=== PATIENT | female | born 1970 | race Caucasian/White ===

== ENCOUNTER 2016-04-27 07:50 | Emergency (ER) | payer OTHER ==
[~2016-04-27] VITALS: Ht 157.5 cm; Wt 93.8 kg
[~2016-04-27 07:50] MED LIST: CEFD300C2 PO; DIAZ5TAB PO; DIAZ5TAB4 PO; DILT120C PO; DILT60CA PO; DIPH25CA61 PO; ESCI10TA10 PO; ESTR0.3T PO; HYDR-3307 PO; HYDR2TAB13 PO; IBUP800T PO; LAMO50TA; LEVO750T26 PO; METF500T4 PO; METO-93 PO; METO100T; METO10TA2 PO; METO50TA82 PO; MULT-672 PO; MULT1CAP19 PO; OMEP-110; OMEP-110 PO; ONDA4TAB7; ONDA4TAB7 PO; OXYC-302 PO; OXYC10TA6 PO; OXYC5TAB3 PO; Ondansetron PO; PANT40TA3 PO; POLY17PO5 PO; RISPERDONE; TRAM50TA2 PO; ZOLP-413
[2016-04-27] MEDS ORDERED: FAMOTIDINE 20 MG/2 ML IVP ONE (08:30)
[2016-04-27] MEDS ORDERED: SODIUM CHLORIDE 0.9% 1,000ML IVBOLUS ONE (08:30)
[2016-04-27] MEDS ORDERED: ONDANSETRON 2MG/ML, 2ML IVPush ONE (08:30)
[2016-04-27] MEDS ORDERED: ICN FENTANYL 0.5MCG/ML IV IVPush ONE (08:30)
[2016-04-27] MEDS ORDERED: SODIUM CHLORIDE FLUSH 10ML SYR IVF ONE (08:30)
[2016-04-27] MEDS ORDERED: FENTANYL PF 100 MCG/2ML IVPush PRN (08:30)
[2016-04-27 08:40] LABS: HEMOGLOBIN 13.5 g/dL (11.7-16.4)
[2016-04-27 08:48] LABS: ASPARTATE AMINO TRANSFERASE 40 U/L (15-37); BLOOD UREA NITROGEN 13 mg/dL (7-18)
[2016-04-27] MEDS ORDERED: ONDANSETRON 2MG/ML, 2ML ONE (09:09)
[2016-04-27] MEDS ORDERED: HYDROmorphone 1 MG/ML, 1ML ONE ×3 (09:09→11:07)
[2016-04-27] MEDS ORDERED: FAMOTIDINE 20 MG/2 ML ONE (09:09)
[2016-04-27] MEDS: HYDROmorphone 1 MG/ML, 1ML IVPush PRN ×2 (09:12→10:42)
[2016-04-27] MEDS ORDERED: HYDROmorphone 1 MG/ML, 1ML IVPush PRN (11:30)
[2016-04-27 12:25] VITALS: BP 130/98
== END 2016-04-27 12:27 | disposition home or self-care (01) ==
LOC: ED 08:45
DX: R10.33 Periumbilical pain (principal); G89.29 Other chronic pain; E11.9 Type 2 diabetes mellitus without complications; I10 Essential (primary) hypertension; Z87.01 Personal history of pneumonia (recurrent)
CPT/HCPCS: 36415; 74020; 80053; 81003; 83690; 85025; 93005; 96361; 96374; 96375; 96376; 99285; J1170; J2405; J7030; S0028

== ENCOUNTER 2016-06-17 07:32 | Emergency (ER) | payer OTHER ==
[~2016-06-17] VITALS: Ht 157.5 cm; Wt 94.4 kg
[~2016-06-17 07:32] MED LIST changes: -CEFD300C2 PO; +CEFD300C37 PO
[2016-06-17] MEDS ORDERED: SODIUM CHLORIDE 0.9% 1,000 ML IV ONE (08:03)
[2016-06-17] MEDS ORDERED: HYDROmorphone 1 MG/ML, 1ML ONE ×3 (08:14→10:23)
[2016-06-17] MEDS ORDERED: ONDANSETRON 2MG/ML, 2ML ONE (08:14)
[2016-06-17] MEDS: HYDROmorphone 1 MG/ML, 1ML IVPush PRN ×2 (08:19→08:48)
[2016-06-17] MEDS ORDERED: ONDANSETRON 2MG/ML, 2ML IVPush ONE (08:30)
[2016-06-17] MEDS ORDERED: SODIUM CHLORIDE 0.9% 1,000ML IVBOLUS ONE (08:30)
[2016-06-17 08:38] LABS: ASPARTATE AMINO TRANSFERASE 42 U/L (15-37); BLOOD UREA NITROGEN 16 mg/dL (7-18)
[2016-06-17] MEDS ORDERED: HYDROmorphone 1 MG/ML, 1ML IVPush PRN (10:30)
[2016-06-17] MEDS ORDERED: NALOXONE 0.4 MG/ML, 1ML ONE (11:14)
[2016-06-17 12:11] VITALS: BP 144/78
== END 2016-06-17 12:13 | disposition home or self-care (01) ==
LOC: ED 08:05
DX: K80.20 Calculus of gallbladder without cholecystitis without obstruction (principal); R10.11 Right upper quadrant pain; D72.829 Elevated white blood cell count, unspecified; E11.9 Type 2 diabetes mellitus without complications; G45.9 Transient cerebral ischemic attack, unspecified; I10 Essential (primary) hypertension
CPT/HCPCS: 36415; 76700; 80053; 81003; 83690; 85025; 96361; 96374; 96375; 99285; J1170; J2405; J7030

== ENCOUNTER 2016-07-31 15:00 | Observation (INO) | payer OTHER ==
[~2016-07-31] VITALS: Ht 157.5 cm; Wt 98.9 kg
[~2016-07-31 15:00] MED LIST changes: +ATOR40TA PO; +BISA-49 PO; +ESTR0.6246 PO; -HYDR2TAB13 PO; +HYDR2TAB29 PO; +LAMO200T PO; +SERT25TA3 PO; +ZOLP10TA5 PO
[2016-07-31] MEDS ORDERED: BUPIVACAINE/PF 0.5% ONE ×3 (15:27→18:05)
[2016-07-31] MEDS ORDERED: EPINEPHRINE 1 MG/ML, 1ML ONE (15:27)
[2016-07-31] MEDS ORDERED: LACTATED RINGERS 1,000 ML IV SCH (16:08)
[2016-07-31 16:12] VITALS: BP 133/95
[2016-07-31] MEDS ORDERED: FENTANYL PF 250 MCG/5ML ONE (16:30)
[2016-07-31] MEDS ORDERED: MIDAZOLAM 1 MG/ML, 2ML ONE (16:32)
[2016-07-31] MEDS ORDERED: CEFAZOLIN 1,000 MG ONE (17:35)
[2016-07-31] MEDS ORDERED: PHENYLEPHRINE 10 MG/ML ONE (17:35)
[2016-07-31] MEDS ORDERED: ESMOLOL 100 MG/10 ML ONE (17:35)
[2016-07-31] MEDS ORDERED: PROPOFOL 10 MG/ML, 50ML ONE (17:35)
[2016-07-31] MEDS ORDERED: ONDANSETRON 2MG/ML, 2ML ONE ×2 (17:35→19:02)
[2016-07-31] MEDS ORDERED: DEXAMETHASONE 4 MG/ML, 1ML ONE (17:35)
[2016-07-31] MEDS ORDERED: SUCCINYLCHOLINE 20 MG/ML, 10ML ONE (17:35)
[2016-07-31] MEDS ORDERED: ROCURONIUM 10 MG/ML ONE (17:35)
[2016-07-31] MEDS ORDERED: LABETALOL 5MG/ML, 20ML IV PRN (18:00)
[2016-07-31] MEDS ORDERED: PROMETHAZINE 25 MG/ML, 1ML IV PRN (18:00)
[2016-07-31] MEDS ORDERED: METOCLOPRAMIDE 5 MG/ML, 2ML IV PRN (18:00)
[2016-07-31] MEDS ORDERED: ACETAMINOPHEN 325 MG TABLET PO PRN (18:00)
[2016-07-31] MEDS ORDERED: OXYcodone 5 MG/5 ML ORAL.SOL UDC PO PRN ×2 (18:00→21:30)
[2016-07-31] MEDS ORDERED: hydrALAzine 20 MG/ML, 1ML IV PRN (18:00)
[2016-07-31] MEDS ORDERED: MIDAZOLAM 1 MG/ML, 2ML IV PRN (18:00)
[2016-07-31] MEDS ORDERED: MEPERIDINE/PF 25MG/0.5ML IVPush PRN (18:00)
[2016-07-31] MEDS ORDERED: ONDANSETRON 2MG/ML, 2ML IVPush PRN ×2 (18:00→21:30)
[2016-07-31] MEDS: FENTANYL PF 100 MCG/2ML IV PRN ×2 (18:54→19:00)
[2016-07-31] MEDS ORDERED: ACETAMINOPHEN 325 MG/10.15 ML UDC ONE (19:00)
[2016-07-31] MEDS ORDERED: HYDROmorphone 2 MG/ML, 1ML ONE ×3 (19:00→23:29)
[2016-07-31] MEDS ORDERED: ACETAMINOPHEN 650 MG/20.3 ML UDC ONE (19:00)
[2016-07-31] MEDS ORDERED: FENTANYL PF 100 MCG/2ML ONE (19:00)
[2016-07-31] MEDS ORDERED: OXYcodone 5 MG/5 ML ORAL.SOL UDC ONE (19:01)
[2016-07-31] MEDS: HYDROmorphone 1 MG/ML, 1ML IV PRN ×8 (19:03→20:20)
[2016-07-31] MEDS ORDERED: MEPERIDINE/PF 25MG/0.5ML ONE (19:22)
[2016-07-31] MEDS ORDERED: PROMETHAZINE 25 MG/ML, 1ML ONE (19:22)
[2016-07-31] MEDS ORDERED: DIPHENHYDRAMINE 50 MG/ML, 1ML IVPush PRN (21:30)
[2016-07-31] MEDS ORDERED: HYDROmorphone 2MG TABLET PO PRN (21:30)
[2016-07-31] MEDS ORDERED: OXYcodone/APAP 5/325MG TABLET PO PRN (21:30)
[2016-07-31] MEDS: LACTATED RINGERS 1,000 ML IV SCH (21:42)
[2016-07-31] MEDS: HYDROmorphone 2 MG/ML, 1ML IV PRN ×3 (22:52→23:49)
[2016-08-01] MEDS: HYDROmorphone 2 MG/ML, 1ML IV PRN ×4 (00:08→11:23)
[2016-08-01 03:26] VITALS: BP 97/61
[2016-08-01] MEDS: OXYcodone IR 5MG TABLET PO PRN ×2 (03:27→08:12)
[2016-08-01] MEDS: LACTATED RINGERS 1,000 ML IV SCH (07:30)
[2016-08-01] MEDS ORDERED: OXYC5TAB3 PO (07:34)
[2016-08-01] MEDS ORDERED: ONDA4TAB7 PO (07:34)
[2016-08-01] MEDS ORDERED: metFORMIN 500 MG TABLET PO SCH (08:00)
[2016-08-01 08:24] VITALS: BP 107/70
[2016-08-01] MEDS ORDERED: MULTIVITAMIN 1 TABLET PO SCH (09:00)
[2016-08-01] MEDS ORDERED: DILTIAZEM 120 MG CAP.ER.24H PO SCH (09:00)
[2016-08-01] MEDS ORDERED: SERTRALINE 50MG TABLET PO SCH (09:00)
[2016-08-01] MEDS ORDERED: METOPROLOL TARTRATE 50 MG TABLET PO SCH (09:00)
[2016-08-01] MEDS ORDERED: LAMOTRIGINE 200 MG TABLET PO SCH (09:00)
[2016-08-01] MEDS ORDERED: ESTROGENS CONJUGATED 0.625 MG TABLET PO SCH (09:00)
[2016-08-01 11:44] VITALS: BP 100/65
[2016-08-01] MEDS ORDERED: ZOLPIDEM 10MG TABLET PO SCH (21:00)
[2016-08-01] MEDS ORDERED: DIPHENHYDRAMINE 50 MG CAPSULE PO SCH (21:00)
[2016-08-01] MEDS ORDERED: ATORVASTATIN 40 MG TABLET PO SCH (21:00)
[2016-08-01] MEDS ORDERED: BISACODYL 5 MG EC TABLET PO SCH (21:00)
== END 2016-08-01 12:20 | disposition home or self-care (01) ==
LOC: OR 15:00 → 4NOR 20:59 → OR 22:18 → 4NOR 23:29
PROVIDERS: ADMIT Surgery; ATTEND Surgery
DX: K81.1 Chronic cholecystitis (principal); K82.8 Other specified diseases of gallbladder
CPT/HCPCS: 47562; 82962; 88304; 96374; 96375; 96376; G0378; J0171; J0330; J0690; J1100; J1170; J2175; J2250; J2370; J2405; J2550; J2704; J3010; J3490; J7120

== ENCOUNTER → 2016-10-10 | Outpatient (CLI) | payer OTHER ==
[~2016-10-10] MED LIST changes: +ESCI20TA PO; +IBUP-1223 PO; -IBUP800T PO
[2016-10-10 13:54] LABS: ASPARTATE AMINO TRANSFERASE 57 U/L (15-37); BLOOD UREA NITROGEN 15 mg/dL (7-18)
== END | disposition home or self-care (01) ==
LOC: STAR 12:37
PROVIDERS: ATTEND Internal Medicine
DX: Z01.818 Encounter for other preprocedural examination (principal); K83.9 Disease of biliary tract, unspecified; I10 Essential (primary) hypertension; E78.5 Hyperlipidemia, unspecified; F41.9 Anxiety disorder, unspecified; E11.9 Type 2 diabetes mellitus without complications; E66.9 Obesity, unspecified; G89.29 Other chronic pain
CPT/HCPCS: 36415; 80053; 93005

== ENCOUNTER 2016-10-17 10:28 | Day surgery (SDC) | payer OTHER ==
[~2016-10-17] VITALS: Ht 157.5 cm; Wt 89.0 kg
[2016-10-17 10:56] VITALS: BP 125/84
[2016-10-17] MEDS ORDERED: LACTATED RINGERS 1,000 ML IV SCH (11:01)
[2016-10-17] MEDS ORDERED: ALPR1TAB2 PO (11:04)
[2016-10-17] MEDS ORDERED: FENTANYL PF 100 MCG/2ML ONE (11:58)
[2016-10-17] MEDS ORDERED: MIDAZOLAM 1 MG/ML, 2ML ONE (11:58)
[2016-10-17] MEDS ORDERED: DEXAMETHASONE 4 MG/ML, 1ML ONE (12:28)
[2016-10-17] MEDS ORDERED: PROPOFOL 10 MG/ML, 20ML ONE (12:28)
[2016-10-17] MEDS ORDERED: SUCCINYLCHOLINE 20 MG/ML, 10ML ONE (12:28)
[2016-10-17] MEDS ORDERED: ONDANSETRON 2MG/ML, 2ML ONE (12:28)
[2016-10-17] MEDS ORDERED: ROCURONIUM 10 MG/ML ONE (12:28)
[2016-10-17] MEDS ORDERED: LABETALOL 5MG/ML, 20ML IV PRN (12:30)
[2016-10-17] MEDS ORDERED: OXYcodone 5 MG/5 ML ORAL.SOL UDC PO PRN (12:30)
[2016-10-17] MEDS ORDERED: MEPERIDINE/PF 25MG/0.5ML IVPush PRN (12:30)
[2016-10-17] MEDS ORDERED: PROMETHAZINE 25 MG/ML, 1ML IV PRN (12:30)
[2016-10-17] MEDS ORDERED: HYDROmorphone 1 MG/ML, 1ML IV PRN ×2 (12:30→15:30)
[2016-10-17] MEDS ORDERED: ONDANSETRON 2MG/ML, 2ML IVPush PRN (12:30)
[2016-10-17] MEDS ORDERED: OMNIPAQUE 350 MG/ML, 50 ML BOTTLE ONE (13:00)
[2016-10-17] MEDS: FENTANYL PF 100 MCG/2ML IV PRN ×2 (13:18→13:29)
[2016-10-17] MEDS ORDERED: HYDROmorphone 2 MG/ML, 1ML ONE (15:07)
== END 2016-10-17 16:10 ==
LOC: OUT 10:28
PROVIDERS: ATTEND Internal Medicine
DX: K83.8 Other specified diseases of biliary tract (principal); I10 Essential (primary) hypertension; E66.9 Obesity, unspecified; Z68.36 Body mass index [BMI] 36.0-36.9, adult; Z90.49 Acquired absence of other specified parts of digestive tract; Z88.1 Allergy status to other antibiotic agents
CPT/HCPCS: 43262; 43275; 74328; J0330; J1100; J1170; J2250; J2405; J2704; J3010; Q9967

== ENCOUNTER 2017-01-10 06:43 | Emergency (ER) | payer OTHER ==
[~2017-01-10] VITALS: Ht 157.5 cm; Wt 90.3 kg
[~2017-01-10 06:43] MED LIST changes: +ALPR1TAB2 PO
[2017-01-10] MEDS ORDERED: METF500T4 PO (06:56)
[2017-01-10] MEDS ORDERED: METO25TA35 PO (06:56)
[2017-01-10] MEDS ORDERED: SODIUM CHLORIDE 0.9% 1,000ML IVBOLUS ONE (07:30)
[2017-01-10] MEDS ORDERED: ONDANSETRON 2MG/ML, 2ML IVPush ONE (07:30)
[2017-01-10] MEDS ORDERED: DIPHENHYDRAMINE 25 MG CAPSULE PO ONE ×2 (07:30→08:30)
[2017-01-10] MEDS ORDERED: SODIUM CHLORIDE FLUSH 10ML SYR IVF ONE (07:30)
[2017-01-10] MEDS ORDERED: ONDANSETRON 2MG/ML, 2ML ONE (07:35)
[2017-01-10] MEDS ORDERED: DIPHENHYDRAMINE 25 MG CAPSULE ONE ×2 (07:35→08:34)
[2017-01-10] MEDS ORDERED: HYDROmorphone 1 MG/ML, 1ML ONE ×2 (07:35→08:34)
[2017-01-10 07:42] LABS: HEMATOCRIT 41.7 % (34.6-47.8); WHITE BLOOD COUNT 8.7 x10^3/uL (3.4-10)
[2017-01-10 07:48] LABS: ASPARTATE AMINO TRANSFERASE 46 U/L (15-37); BLOOD UREA NITROGEN 13 mg/dL (7-18)
[2017-01-10] MEDS: HYDROmorphone 1 MG/ML, 1ML IVPush PRN ×2 (07:48→08:38)
[2017-01-10 09:00] VITALS: BP 138/94
== END 2017-01-10 09:55 | disposition home or self-care (01) ==
LOC: ED 08:59
DX: R10.12 Left upper quadrant pain (principal); R10.32 Left lower quadrant pain; G89.29 Other chronic pain; E11.9 Type 2 diabetes mellitus without complications; I10 Essential (primary) hypertension
CPT/HCPCS: 36415; 74020; 76700; 80053; 81003; 83690; 84703; 85025; 96361; 96374; 96375; 96376; 99285; J1170; J2405; J7030; Q0163

== ENCOUNTER 2017-07-22 11:04 | Emergency (ER) | payer OTHER ==
[~2017-07-22] VITALS: Ht 157.5 cm; Wt 95.0 kg
[~2017-07-22 11:04] MED LIST changes: +DILT-8 PO; -DILT120C PO; -LAMO200T PO; +LAMO200T2 PO; +METO25TA35 PO
[2017-07-22 11:07] VITALS: BP 145/92
[2017-07-22] MEDS ORDERED: HYDROcodone/APAP 5/325 TABLET PO ONE (12:30)
[2017-07-22] MEDS ORDERED: HYDROcodone/APAP 5/325 TABLET ONE (12:44)
== END 2017-07-22 13:44 | disposition home or self-care (01) ==
LOC: ED 13:38
DX: S50.01XA Contusion of right elbow, initial encounter (principal); S90.01XA Contusion of right ankle, initial encounter; S90.31XA Contusion of right foot, initial encounter; W18.40XA Slipping, tripping and stumbling without falling, unspecified, initial encounter; Y93.89 Activity, other specified; Y92.89 Other specified places as the place of occurrence of the external cause; Y99.8 Other external cause status; I10 Essential (primary) hypertension; E11.9 Type 2 diabetes mellitus without complications
CPT/HCPCS: 99284

== ENCOUNTER 2017-12-25 09:35 | Emergency (ER) | payer OTHER ==
[~2017-12-25] VITALS: Ht 157.5 cm; Wt 93.7 kg
[~2017-12-25 09:35] MED LIST changes: +METF500T17 PO; -METF500T4 PO
[2017-12-25] MEDS ORDERED: SODIUM CHLORIDE FLUSH 10ML SYR IVF ONE (10:30)
[2017-12-25 10:57] LABS: BASOPHILS # (AUTO) 0.01 x10^3/uL (0-0.1); BASOPHILS % (AUTO) 0 % (0-1); EOSINOPHILS # (AUTO) 0.22 x10^3/uL (0-0.4); EOSINOPHILS % (AUTO) 3 % (1-7); LYMPHOCYTES # (AUTO) 2.27 x10^3/uL (1-3.4); LYMPHOCYTES % (AUTO) 30 % (22-44); MD NO; MEAN CORPUSCULAR HEMOGLOBIN 28.7 pg (27.0-34.8); MEAN CORPUSCULAR HGB CONC 33.2 g/dL (32.4-35.8); MEAN CORPUSCULAR VOLUME 86.6 fL (80-100); MEAN PLATELET VOLUME 6.9 fL (7.4-10.4); MONOCYTES # (AUTO) 0.38 x10^3/uL (0.2-0.8); MONOCYTES % (AUTO) 5 % (2-9); NEUTROPHILS % (AUTO) 63 % (42-75); PLATELET COUNT 211 x10^3/uL (130-400); RED BLOOD COUNT 4.49 x10^6/uL (3.82-5.3); RED CELL DISTRIBUTION WIDTH 15.3 % (9.6-15.2)
[2017-12-25 11:06] LABS: ALANINE AMINOTRANSFERASE 56 U/L (12-78); ALBUMIN 3.6 g/dL (3.4-5.0); ANION GAP 7 mmol/L (5-15); CALCIUM 8.6 mg/dL (8.5-10.1); CHLORIDE 107 mmol/L (98-107); CREATININE 0.92 mg/dL (0.55-1.02)
[2017-12-25 11:09] LABS: ALKALINE PHOSPHATASE 126 U/L (45-117); BILIRUBIN,TOTAL 0.4 mg/dL (0.2-1.0); TOTAL PROTEIN 7.2 g/dL (6.4-8.2)
[2017-12-25 11:28] LABS: MICROSCOPIC NOT IND
[2017-12-25] MEDS ORDERED: OMNIPAQUE 350 MG/ML, 100ML BOTTLE ONE (11:45)
[2017-12-25 11:57] LABS: CULTURE INDICATED? NO
[2017-12-25 13:41] VITALS: BP 119/82
== END 2017-12-25 13:43 | disposition home or self-care (01) ==
LOC: ED 11:22
DX: N83.02 Follicular cyst of left ovary (principal); N83.01 Follicular cyst of right ovary; K59.00 Constipation, unspecified; E11.9 Type 2 diabetes mellitus without complications; I10 Essential (primary) hypertension; Z90.722 Acquired absence of ovaries, bilateral; Z87.19 Personal history of other diseases of the digestive system
CPT/HCPCS: 36415; 74177; 80053; 81003; 83690; 85025; 99285; Q9967

== ENCOUNTER 2018-09-08 07:53 | Outpatient (CLI) | payer OTHER ==
[~2018-09-08 07:53] MED LIST changes: -HYDR-3307 PO; +HYDR-36 PO
[2018-09-27] MEDS ORDERED: rosuvastatin (15:46)
== END 2018-09-08 23:59 | disposition home or self-care (01) ==
LOC: CFH 07:53
PROVIDERS: ATTEND Specialist
DX: N83.8 Other noninflammatory disorders of ovary, fallopian tube and broad ligament (principal); Z88.1 Allergy status to other antibiotic agents; Z88.2 Allergy status to sulfonamides; Z88.5 Allergy status to narcotic agent; Z90.710 Acquired absence of both cervix and uterus
CPT/HCPCS: 76830

== ENCOUNTER 2018-09-27 14:39 | Inpatient (IN) | payer OTHER ==
[~2018-09-27] VITALS: Ht 157.5 cm; Wt 96.9 kg
[2018-09-29 17:09] VITALS: BP 158/97
== END 2018-09-29 17:45 | disposition home or self-care (01) | DRG 392 ==
LOC: ED 16:39 → EDIP 17:59 → 4NOR 19:50
PROVIDERS: ADMIT Surgery; ATTEND Surgery
DX: K52.9 Noninfective gastroenteritis and colitis, unspecified (principal); K56.52 Intestinal adhesions [bands] with complete obstruction; E66.9 Obesity, unspecified; G89.29 Other chronic pain; I10 Essential (primary) hypertension; Z88.5 Allergy status to narcotic agent; Z88.2 Allergy status to sulfonamides; Z91.048 Other nonmedicinal substance allergy status; Z90.710 Acquired absence of both cervix and uterus; E11.9 Type 2 diabetes mellitus without complications; Z68.39 Body mass index [BMI] 39.0-39.9, adult
CPT/HCPCS: 36415; 74021; 74245; 99285; J3490; 74177; 80048; 80053; 81001; 83690; 85025; 87086; 93005; G0378; J1170; J1650; J2405; Q9967; J0500; J2060; J2765; J7030

== ENCOUNTER 2019-02-27 21:03 | Observation (INO) | payer OTHER ==
[~2019-02-27] VITALS: Ht 157.5 cm; Wt 98.0 kg
[~2019-02-27 21:03] MED LIST changes: +rosuvastatin
[2019-02-27] MEDS ORDERED: CHARCOAL/SORBITOL 50 GM/240 ML ONE (21:29)
[2019-02-27] MEDS ORDERED: SODIUM CHLORIDE 0.9% 1,000ML IVBOLUS ONE (21:30)
[2019-02-27] MEDS ORDERED: SODIUM CHLORIDE FLUSH 10ML SYR IVF ONE (21:30)
[2019-02-27] MEDS ORDERED: CHARCOAL/AQUEOUS 25 GM/120 ML PO ONE (21:30)
--- NOTE | 2019-02-27 21:35 | NUR ---
Pt presents to ed c/o accidentally ingesting 30, 50 mg, metoprolol pills approximately 45 minutes ago. Pt denies any si/sa w/ this event. Pt appears nervous and agitated in the room and states feeling dizzy and "i can feel my heart beating fast." All monitoring applied. Pt bp and hr elevated at this time. Multiple iv access obtained and ns bolus initiated. lizzy Mantilla rn, at bedside and report given. Jose Rafael barrera w/ activated charcoal.
[2019-02-27 21:52] LABS: BASOPHILS # (AUTO) 0.03 x10^3/uL (0-0.1); BASOPHILS % (AUTO) 0 % (0-1); EOSINOPHILS % (AUTO) 4 % (1-7); LYMPHOCYTES # (AUTO) 2.08 x10^3/uL (1-3.4); LYMPHOCYTES % (AUTO) 30 % (22-44); MD NO; MEAN CORPUSCULAR HEMOGLOBIN 28.2 pg (27.0-34.8); MEAN CORPUSCULAR HGB CONC 33.1 g/dL (32.4-35.8); MEAN CORPUSCULAR VOLUME 85.3 fL (80-100); MEAN PLATELET VOLUME 7.5 fL (7.4-10.4); MONOCYTES # (AUTO) 0.05 x10^3/uL (0.2-0.8); MONOCYTES % (AUTO) 1 % (2-9); NEUTROPHILS # (AUTO) 4.49 x10^3/uL (1.8-6.8); NEUTROPHILS % (AUTO) 65 % (42-75); PLATELET COUNT 213 x10^3/uL (130-400); RED BLOOD COUNT 4.92 x10^6/uL (3.82-5.3); RED CELL DISTRIBUTION WIDTH 14.6 % (9.6-15.2)
[2019-02-27 22:02] LABS: ALANINE AMINOTRANSFERASE 51 U/L (12-78); ANION GAP 4 mmol/L (5-15); CALCIUM 8.9 mg/dL (8.5-10.1); CHLORIDE 108 mmol/L (98-107); CREATININE 1.08 mg/dL (0.55-1.02)
[2019-02-27 22:04] LABS: ALKALINE PHOSPHATASE 123 U/L (45-117); BILIRUBIN,TOTAL 0.3 mg/dL (0.2-1.0); TOTAL PROTEIN 8.1 g/dL (6.4-8.2)
--- NOTE | 2019-02-27 22:15 | NUR ---
PT ASSISTED TO RESTROOM AND BACK INTO BED. PT UNSTEADY ON FEET. ONE ASSIST AT THIS TIME. PT FINISHED 3/4 OF ACTIVATED CHARCOAL. PA INFORMED
[2019-02-27] MEDS ORDERED: ONDANSETRON 2MG/ML, 2ML ONE (22:49)
[2019-02-27] MEDS ORDERED: ONDANSETRON 2MG/ML, 2ML IVPush ONE (23:00)
--- NOTE | 2019-02-27 23:44 | NUR ---
PT REQUESTING ICE CHIPS. [place] AND [place] OKAY FOR ICE CHIPS. PT GIVEN CUP OF ICE CHIPS. PT DENIES FURTHER NEEDS AT THIS TIME.
[2019-02-27] MEDS ORDERED: ROSU5TAB PO (23:53)
[2019-02-27] MEDS ORDERED: QUET300T5 PO (23:53)
[2019-02-27] MEDS ORDERED: [UNRECOGNIZED DRUG - OTHER] PO (23:53)
[2019-02-27] MEDS ORDERED: OXYC10TA6 PO (23:53)
[2019-02-27] MEDS ORDERED: ATOR10TA9 PO (23:53)
[2019-02-27] MEDS ORDERED: METO25TA35 PO (23:53)
--- NOTE | 2019-02-28 00:35 | NUR ---
ADMITTING MD HAS SEEN PT AND OKAY'D MORE ICE CHIPS. PT GIVEN MORE ICE CHIPS PER REQUEST. PT DENIES FURTHER NEEDS AT THIS TIME. CALL LIGHT ON LAP.
[2019-02-28] MEDS: HEPARIN 5,000 UNITS/ML, 1ML SQ SCH ×2 (01:00→09:00)
[2019-02-28] MEDS ORDERED: LORazepam 2 MG/ML, 1ML IM PRN (01:00)
[2019-02-28] MEDS ORDERED: QUETIAPINE 100MG TABLET PO SCH (01:00)
[2019-02-28] MEDS ORDERED: ATROPINE SYRINGE 0.1 MG/ML, 10ML IVPush PRN (01:00)
[2019-02-28] MEDS ORDERED: ACETAMINOPHEN 325 MG TABLET PO PRN (01:00)
[2019-02-28] MEDS ORDERED: IBUPROFEN 600 MG TABLET PO PRN (01:00)
[2019-02-28] MEDS ORDERED: OXYcodone/APAP 10/325MG TABLET PO PRN (01:00)
[2019-02-28] MEDS: SODIUM CHLORIDE 0.9% 1,000 ML IV SCH ×2 (01:42→07:15)
[2019-02-28] MEDS ORDERED: ALBUTEROL SULFATE 2.5MG/0.5ML NPPB PRN (02:30)
[2019-02-28 04:00] VITALS: BP 108/74
[2019-02-28 04:42] VITALS: BP 144/92
[2019-02-28] MEDS ORDERED: SODIUM CHLORIDE 0.9% 1,000 ML IV PRN (07:30)
[2019-02-28 07:44] LABS: BASOPHILS # (AUTO) 0.03 x10^3/uL (0-0.1); BASOPHILS % (AUTO) 0 % (0-1); EOSINOPHILS # (AUTO) 0.21 x10^3/uL (0-0.4); EOSINOPHILS % (AUTO) 3 % (1-7); LYMPHOCYTES # (AUTO) 2.18 x10^3/uL (1-3.4); LYMPHOCYTES % (AUTO) 31 % (22-44); MD NO; MEAN CORPUSCULAR HGB CONC 32.6 g/dL (32.4-35.8); MEAN CORPUSCULAR VOLUME 85.8 fL (80-100); MEAN PLATELET VOLUME 6.8 fL (7.4-10.4); MONOCYTES # (AUTO) 0.32 x10^3/uL (0.2-0.8); MONOCYTES % (AUTO) 5 % (2-9); NEUTROPHILS % (AUTO) 61 % (42-75); PLATELET COUNT 197 x10^3/uL (130-400); RED BLOOD COUNT 4.41 x10^6/uL (3.82-5.3); RED CELL DISTRIBUTION WIDTH 14.8 % (9.6-15.2)
[2019-02-28 07:54] LABS: ANION GAP 6 mmol/L (5-15); CALCIUM 7.7 mg/dL (8.5-10.1); CHLORIDE 113 mmol/L (98-107); CREATININE 0.93 mg/dL (0.55-1.02)
[2019-02-28] MEDS ORDERED: [UNRECOGNIZED DRUG - OTHER] HOMEMEDPO SCH (09:00)
[2019-02-28] MEDS ORDERED: OXYcodone IR 5MG TABLET PO PRN (10:30)
[2019-02-28 10:39] LABS: ALANINE AMINOTRANSFERASE 42 U/L (12-78); ALBUMIN 3.6 g/dL (3.4-5.0)
[2019-02-28 10:41] LABS: ALKALINE PHOSPHATASE 111 U/L (45-117); BILIRUBIN,TOTAL 0.2 mg/dL (0.2-1.0); TOTAL PROTEIN 7.2 g/dL (6.4-8.2)
[2019-02-28] MEDS ORDERED: XTAMPZA 13.5 MG HOMEMEDPO SCH (11:00)
[2019-02-28 11:44] LABS: AMPHETAMINE SCREEN, URINE Negative (Negative); BARBITURATE SCREEN, URINE Negative (Negative); BENZODIAZEPINE SCREEN, URINE Negative (Negative); CANNABINOID SCREEN, URINE Negative (Negative); COCAINE SCREEN, URINE Negative (Negative); METHADONE SCREEN, URINE Negative (Negative); OPIATE SCREEN, URINE Negative (Negative)
[2019-02-28] MEDS ORDERED: ATORVASTATIN 10 MG TABLET PO SCH (21:00)
== END 2019-02-28 14:08 | disposition home or self-care (01) ==
LOC: ED 21:49 → EDIP 23:20 → INTOOBSV 23:20 → ICU 02-28 01:10
PROVIDERS: ADMIT Student in an Organized Health Care Education/Training Program; ATTEND Student in an Organized Health Care Education/Training Program
DX: T44.7X1A Poisoning by beta-adrenoreceptor antagonists, accidental (unintentional), initial encounter (principal); I10 Essential (primary) hypertension; E78.5 Hyperlipidemia, unspecified; G89.29 Other chronic pain; G47.00 Insomnia, unspecified; E66.9 Obesity, unspecified; F31.9 Bipolar disorder, unspecified; R10.9 Unspecified abdominal pain; Z79.899 Other long term (current) drug therapy; Z88.0 Allergy status to penicillin; Z88.1 Allergy status to other antibiotic agents; Z88.2 Allergy status to sulfonamides; Z88.5 Allergy status to narcotic agent; Z88.8 Allergy status to other drugs, medicaments and biological substances
CPT/HCPCS: 36415; 71045; 80053; 80307; 85025; 87081; 93005; 96374; 99284; G0378; J2405; J7030; 99285